=== PATIENT | female | born 1960 | race African-American/Black ===

== ENCOUNTER → 2018-02-16 | Outpatient (CLI) | payer MEDICARE, MEDICAID | END | disposition home or self-care (01) | LOC: MRI 12:14 | PROVIDERS: ATTEND Neurological Surgery | DX: M47.894 Other spondylosis, thoracic region (principal); M48.04 Spinal stenosis, thoracic region | CPT/HCPCS: 72146 ==

== ENCOUNTER 2018-07-30 10:30 | Inpatient (IN) | payer MEDICARE, MEDICAID ==
[~2018-07-30] VITALS: Ht 152.4 cm; Wt 88.0 kg
[2018-07-30] MEDS ORDERED: MORPHINE SULFATE 4 MG/ML CPJ (NOT FOR IM USE) IV STA (10:52)
[2018-07-30] MEDS ORDERED: SODIUM CHLORIDE 0.9% 1,000 ML IV ONE (10:52)
[2018-07-30] MEDS ORDERED: ONDANSETRON HCL 4MG/2ML INJ IV STA (10:52)
[2018-07-30] MEDS ORDERED: FAMOTIDINE 20MG/2ML VIAL IV ONE (11:00)
[2018-07-30 11:25] LABS: CLARITY URINE CLOUDY (CLEAR); COLOR URINE YELLOW (YELLOW); KETONES URINE 1+ (NEGATIVE); LEUKOCYTE ESTERASE URINE NEGATIVE (NEGATIVE); NITRITE URINE NEGATIVE (NEGATIVE); OCCULT BLOOD URINE NEGATIVE (NEGATIVE); PH URINE 7.5 (4.5-8.0); PROTEIN URINE 1+ (NEGATIVE); SPECIFIC GRAVITY URINE 1.012 (1.005-1.030); UROBILINOGEN URINE 0.2 E.U./dL (0.2-1.0)
[2018-07-30 11:45] LABS: CHLORIDE 109 mEq/L (98-107); PARTIAL THROMBOPLASTIN TIME 24.9 sec (23.4-31.0); PROTHROMBIN TIME 10.1 sec (9.6-11.0)
[2018-07-30 11:45] LABS: *AMPHETAMINES SCREEN URINE NEGATIVE (NEGATIVE); *BARBITURATES SCREEN URINE NEGATIVE (NEGATIVE); *BENZODIAZEPINES SCREEN URINE NEGATIVE (NEGATIVE); *COCAINE SCREEN URINE NEGATIVE (NEGATIVE); CANNABINOID URINE SCREEN PRESUMTIVE POSITIVE (NEGATIVE); METHADONE URINE SCREEN NEGATIVE (NEGATIVE); OPIATES URINE SCREEN PRESUMTIVE POSITIVE (NEGATIVE)
[2018-07-30 11:47] LABS: PHENCYCLIDINE URINE SCREEN NEGATIVE (NEGATIVE)
[2018-07-30 11:49] LABS: ETHANOL BLOOD < 10 mg/dL
[2018-07-30] MEDS ORDERED: MORPHINE SULFATE 4 MG/ML CPJ (NOT FOR IM USE) IV ONE (12:00)
[2018-07-30] MEDS ORDERED: METOCLOPRAMIDE HCL 10MG/2ML VIAL IV ONE (12:00)
[2018-07-30] MEDS ORDERED: HYDRALAZINE 20MG/ML VIAL IV ONE ×2 (12:15→13:30)
[2018-07-30 13:11] LABS: BASOPHILS % 0.6 % (0.0-2.0); EOSINOPHILS % 0.1 % (0.0-5.0); HEMOGLOBIN. 12.7 g/dL (12.0-16.0); MEAN CORPUSCULAR HEMOGLOBIN 23.3 pg (28.0-32.0); MEAN CORPUSCULAR VOLUME 73.2 fL (81.0-99.0); MEAN PLATELET VOLUME 8.9 fl (7.4-10.4); MONOCYTES % 6.4 % (2.0-8.0); NEUTROPHILS % 79.9 % (40.0-76.0); PLATELET 241 x1000/uL (130-400); RED BLOOD CELL COUNT 5.46 mill/uL (4.2-5.4); RED CELL DISTRIBUTION WIDTH 17.1 % (11.6-14.6)
[2018-07-30] MEDS ORDERED: MAGNESIUM/ALUMINUM HYDROXIDE/SIMETHICONE 30ML UDC PO PRN (14:00)
[2018-07-30] MEDS ORDERED: GUAIFENESIN 200MG/10ML SUGAR FREE UDC PO PRN (14:00)
[2018-07-30] MEDS ORDERED: ACETAMINOPHEN 325MG TABLET PO PRN (14:00)
[2018-07-30] MEDS ORDERED: HYDROCODONE/ACETAMINOPHEN 5/325MG TABLET PO PRN (14:00)
[2018-07-30] MEDS ORDERED: ONDANSETRON HCL 4MG/2ML INJ IV PRN (14:00)
[2018-07-30] MEDS ORDERED: DOCUSATE SODIUM 100MG CAPSULE PO PRN (14:00)
[2018-07-30] MEDS ORDERED: ACETAMINOPHEN 650MG/20.3ML UDC GT PRN (14:00)
[2018-07-30] MEDS ORDERED: NA PHOS,M-B/NA PHOS,DI-BA ENEMA 118ML PR PRN (14:00)
[2018-07-30] MEDS ORDERED: ACETAMINOPHEN 650MG SUPP PR PRN (14:00)
[2018-07-30] MEDS ORDERED: DIPHENHYDRAMINE 50MG/ML VIAL IV PRN (14:00)
[2018-07-30] MEDS ORDERED: IPRATROPIUM/ALBUTEROL 0.5-3(2.5)MG/3ML NEB INH PRN (14:00)
[2018-07-30] MEDS ORDERED: CLONIDINE 0.1MG TABLET PO PRN (14:00)
[2018-07-30 14:02] VITALS: BP 165/78
[2018-07-30] MEDS: DEXT 5%/0.45% NACL 1000ML 1,000 ML IV SCH (15:26)
[2018-07-30] MEDS: AMLODIPINE 10MG TABLET PO SCH (15:38)
[2018-07-30] MEDS: SODIUM CHLORIDE 0.9% INJ 3ML FLUSH IVF SCH ×2 (15:38→21:23)
[2018-07-30 16:00] VITALS: BP 196/64
[2018-07-30] MEDS: ENOXAPARIN 40MG/0.4ML SYR SUBCUT SCH (16:19)
[2018-07-30] MEDS: PREDNISONE 5MG TABLET PO SCH (18:46)
[2018-07-30] MEDS: METOCLOPRAMIDE HCL 10MG/2ML VIAL IV SCH (18:46)
[2018-07-30] MEDS: MORPHINE SULFATE 2 MG/ML CPJ (NOT FOR IM USE) IV PRN (19:08)
[2018-07-30] MEDS ORDERED: PNEUMOCOCCAL 23-VAL P-SAC VAC 0.5 ML IM ONE (19:45)
[2018-07-30 19:51] VITALS: BP 178/68
[2018-07-30] MEDS: FAMOTIDINE 20MG/2ML VIAL IV SCH (21:19)
[2018-07-30] MEDS: HYDRALAZINE 20MG/ML VIAL IV PRN (21:22)
[2018-07-30 22:20] LABS: CREATINE KINASE 221 IU/L (26-192)
[2018-07-30 22:21] LABS: CREATINE KINASE MB FRACTION 1.9 ng/mL (0.5-3.6)
[2018-07-31] MEDS: DEXT 5%/0.45% NACL 1000ML 1,000 ML IV SCH (02:58)
[2018-07-31] MEDS: MORPHINE SULFATE 2 MG/ML CPJ (NOT FOR IM USE) IV PRN ×5 (02:59→23:25)
[2018-07-31] MEDS: METOCLOPRAMIDE HCL 10MG/2ML VIAL IV SCH ×5 (05:52→23:25)
[2018-07-31 06:00] VITALS: BP 162/67
[2018-07-31] MEDS: SODIUM CHLORIDE 0.9% INJ 3ML FLUSH IVF SCH ×3 (06:12→22:28)
[2018-07-31] MEDS: HYDRALAZINE 20MG/ML VIAL IV PRN (06:12)
[2018-07-31 06:53] LABS: BASOPHILS % 0.3 % (0.0-2.0); EOSINOPHILS % 0.1 % (0.0-5.0); HEMATOCRIT. 36.6 % (36.0-48.0); HEMOGLOBIN. 11.8 g/dL (12.0-16.0); LYMPHOCYTES % 15.9 % (20.0-50.0); MEAN CORPUSCULAR HEMOGLOBIN 23.5 pg (28.0-32.0); MEAN PLATELET VOLUME 9.2 fl (7.4-10.4); MONOCYTES % 8.3 % (2.0-8.0); NEUTROPHILS % 75.4 % (40.0-76.0); PLATELET 237 x1000/uL (130-400); RED BLOOD CELL COUNT 5.01 mill/uL (4.2-5.4); RED CELL DISTRIBUTION WIDTH 17.2 % (11.6-14.6)
[2018-07-31 07:03] LABS: CHLORIDE 107 mEq/L (98-107)
[2018-07-31 07:13] LABS: LDL CHOLESTEROL 86 mg/dL (5-100)
[2018-07-31 07:14] LABS: CREATINE KINASE 193 IU/L (26-192); HDL CHOLESTEROL 51 mg/dL (40-59)
[2018-07-31 07:17] LABS: CREATINE KINASE MB FRACTION 1.5 ng/mL (0.5-3.6)
[2018-07-31 08:00] VITALS: BP 131/65
[2018-07-31] MEDS: PREDNISONE 5MG TABLET PO SCH (09:00)
[2018-07-31] MEDS: FAMOTIDINE 20MG/2ML VIAL IV SCH ×2 (09:50→20:34)
[2018-07-31 12:00] VITALS: BP 149/72
[2018-07-31] MEDS ORDERED: MIDAZOLAM HCL 5 MG/5 ML VIAL ONE (12:32)
[2018-07-31] MEDS ORDERED: FENTANYL CITRATE/PF 50MCG/ML 2ML VIAL ONE (12:33)
[2018-07-31] MEDS: AMLODIPINE 10MG TABLET PO SCH (13:58)
[2018-07-31] MEDS: ENOXAPARIN 40MG/0.4ML SYR SUBCUT SCH (13:59)
[2018-07-31 16:00] VITALS: BP 147/71
[2018-07-31 19:53] VITALS: BP 142/60
[2018-07-31] MEDS ORDERED: POTASSIUM CHLORIDE 20MEQ TABLET SR PO SCH (20:15)
[2018-08-01] VITALS: BP 138/75
[2018-08-01] MEDS: MORPHINE SULFATE 2 MG/ML CPJ (NOT FOR IM USE) IV PRN (04:12)
[2018-08-01] MEDS: DEXT 5%/0.45% NACL 1000ML 1,000 ML IV SCH (05:34)
[2018-08-01] MEDS: METOCLOPRAMIDE HCL 10MG/2ML VIAL IV SCH (05:34)
[2018-08-01] MEDS: SODIUM CHLORIDE 0.9% INJ 3ML FLUSH IVF SCH (05:35)
[2018-08-01 08:00] VITALS: BP 140/65
[2018-08-01] MEDS ORDERED: FAMO40TA70 MT (08:18)
[2018-08-01] MEDS ORDERED: POTASSIUM CHLORIDE 20MEQ TABLET SR PO PRN (08:30)
[2018-08-01] MEDS: AMLODIPINE 10MG TABLET PO SCH (08:45)
[2018-08-01] MEDS: FAMOTIDINE 20MG/2ML VIAL IV SCH (08:45)
[2018-08-01] MEDS: PREDNISONE 5MG TABLET PO SCH (08:45)
[2018-08-01 08:51] VITALS: BP 140/65
[2018-08-01] MEDS: ENOXAPARIN 40MG/0.4ML SYR SUBCUT SCH (09:00)
== END 2018-08-01 09:40 | disposition home or self-care (01) | DRG 392 ==
LOC: ER 10:30 → 6WST 12:58 → EDBEDREQ 13:00 → ENRESERV 13:14
PROVIDERS: ADMIT Family Medicine; ATTEND Family Medicine
PROC: 0DB68ZX Excision of Stomach, Via Natural or Artificial Opening Endoscopic, Diagnostic (ICD-10-PCS; principal; 2018-07-31)
DX: K29.70 Gastritis, unspecified, without bleeding (principal); J98.11 Atelectasis; E86.0 Dehydration; K44.9 Diaphragmatic hernia without obstruction or gangrene; E11.9 Type 2 diabetes mellitus without complications; I50.9 Heart failure, unspecified; I11.0 Hypertensive heart disease with heart failure; E66.9 Obesity, unspecified; G89.29 Other chronic pain; I25.10 Atherosclerotic heart disease of native coronary artery without angina pectoris; J44.9 Chronic obstructive pulmonary disease, unspecified; M32.9 Systemic lupus erythematosus, unspecified; M51.9 Unspecified thoracic, thoracolumbar and lumbosacral intervertebral disc disorder; Z87.01 Personal history of pneumonia (recurrent); Z68.37 Body mass index [BMI] 37.0-37.9, adult; Z87.442 Personal history of urinary calculi; Z90.710 Acquired absence of both cervix and uterus; Z95.5 Presence of coronary angioplasty implant and graft
CPT/HCPCS: 36415; 71045; 74176; 80061; 80305; 80320; 82550; 82553; 83605; 83880; 84484; 88305; 88313; 93005; 96374; 96375; 96376; 99285; J0360; J1650; J2250; J2270; J2405; J2765; J3010; J3490; J7030; J7512; G0480

== ENCOUNTER 2019-05-17 05:12 | Inpatient (IN) | payer MEDICARE, MEDICAID ==
[~2019-05-17] VITALS: Ht 152.4 cm; Wt 97.7 kg
[2019-05-17] VITALS (61 sets, daily range): BP systolic 89–231; BP diastolic 34–100
[~2019-05-17 05:12] MED LIST: AMLO5TAB88 PO; ASPI-1497 PO; CLON0.1T PO; CLON1PAT10 TD; CLOP75TA4 PO; DOCU-286 PO; FAMO40TA70 MT; FURO-152 PO; GABA-533 PO; HYDR-3280 PO; HYDR-4135 PO; HYDR200T35 PO; HYDR25TA PO; KRIL1CAP23 PO; LISI40TA4 PO; OMEG-31 PO; OMEP40CA12 PO; OXYC30TA86 PO; POTA20TA12 PO; TURM500C6 PO
[2019-05-17] MEDS ORDERED: LACTATED RINGERS 1,000 ML IV SCH (06:15)
[2019-05-17 06:24] LABS: CHLORIDE 113 mEq/L (98-107)
[2019-05-17] MEDS ORDERED: LIDOCAINE HCL/EPINEPHRINE 1%-EPI 1:100,000 20 ML VIAL ONE (06:45)
[2019-05-17] MEDS ORDERED: THROMBIN (BOVINE) 5000 UNITS/VIAL TOP ONE ×3 (06:45→09:07)
[2019-05-17] MEDS ORDERED: BACITRACIN 50,000 UNITS/VIAL ONE (06:46)
[2019-05-17] MEDS ORDERED: FENTANYL CITRATE/PF 50MCG/ML 2ML VIAL ONE ×2 (06:53→10:41)
[2019-05-17] MEDS ORDERED: ROCURONIUM BROMIDE 10MG/ML VIAL 5ML IV ONE ×2 (06:54→09:09)
[2019-05-17] MEDS ORDERED: MIDAZOLAM HCL 2 MG/2 ML VIAL ONE ×2 (06:54→10:41)
[2019-05-17] MEDS ORDERED: GLYCOPYRROLATE 0.2 MG/ML 2ML VIAL ONE ×2 (06:54→10:30)
[2019-05-17] MEDS ORDERED: NEOSTIGMINE METHYLSULFATE 1MG/ML 10 ML VIAL ONE (06:54)
[2019-05-17] MEDS ORDERED: PROPOFOL 200MG/20ML VIAL IV ONE ×2 (06:54→08:13)
[2019-05-17] MEDS ORDERED: ONDANSETRON HCL 4MG/2ML INJ IV PRN ×2 (07:15)
[2019-05-17] MEDS ORDERED: OXYCODONE HCL/ACETAMINOPHEN 5/325MG TABLET PO PRN (07:15)
[2019-05-17] MEDS ORDERED: HYDROMORPHONE HCL/PF 2MG/ML (OR) ONE ×2 (07:53→08:17)
[2019-05-17] MEDS ORDERED: DEXAMETHASONE 4MG/ML 1ML VIAL ONE (07:53)
[2019-05-17] MEDS ORDERED: SUCCINYLCHOLINE CHLORIDE 200MG/10ML IV ONE (08:01)
[2019-05-17] MEDS ORDERED: LABETALOL HCL 5MG/ML VIAL 20ML IV ONE (08:01)
[2019-05-17] MEDS ORDERED: PROPOFOL 10MG/ML 100ML 100 ML IV ONE (08:02)
[2019-05-17] MEDS ORDERED: SODIUM CHLORIDE 0.9% 10ML VIAL ONE ×2 (09:55→10:49)
[2019-05-17] MEDS ORDERED: METOCLOPRAMIDE HCL 10MG/2ML VIAL ONE (09:56)
[2019-05-17] MEDS ORDERED: CEFAZOLIN SODIUM 1000MG/VIAL ONE (09:56)
[2019-05-17] MEDS ORDERED: HYDRALAZINE 20MG/ML VIAL ONE (09:57)
[2019-05-17] MEDS ORDERED: LIDOCAINE HCL/PF 1% 10 MG/ML 5ML VIAL ONE (09:57)
[2019-05-17] MEDS ORDERED: EPHEDRINE SULFATE 50MG/ML VIAL ONE (10:49)
[2019-05-17] MEDS ORDERED: PHENYLEPHRINE HCL 10 MG/ML 1ML (IV VIAL) IV ONE (10:54)
[2019-05-17] MEDS: NICARDIPINE 100 MG in SODIUM CHLORIDE 0.9% 60 ML IV PRN ×2 (11:30→20:50)
[2019-05-17] MEDS ORDERED: IPRATROPIUM/ALBUTEROL 0.5-3(2.5)MG/3ML NEB HHN PRN (11:30)
[2019-05-17] MEDS ORDERED: ONDANSETRON INJ IV PRN (12:15)
[2019-05-17] MEDS ORDERED: NALOXONE INJ IV PRN (12:15)
[2019-05-17] MEDS ORDERED: DIPHENHYDRAMINE INJ IV PRN (12:15)
[2019-05-17 12:22] LABS: BG BASE EXCESS -6.3 mmol/L (-2.0-2.0); BG CARBOXYHEMOGLOBIN 0.2 % (0.5-1.5); BG DEOXYHEMOGLOBIN 0.8 % (0.0-5.0); BG FRACTION INSPIRED OXYGEN 100; BG HCO3 ACT 17.9 mmol/L (22.0-26.0); BG METHEMOGLOBIN 0.1 % (0.0-1.5); BG OXYGEN SATURATION 99.2 % (92.0-98.5); BG OXYHEMOGLOBIN 98.9 % (94.0-97.0); BG PCO2 31.6 mmHg (35.0-45.0); BG PH 7.372 (7.350-7.450); BG PO2 342.5 mmHg (75.0-100.0); BG SAMPLE SITE A-LINE; BG TIDAL VOLUME(mL) 500 mL; BG TOTAL HEMOGLOBIN 11.3 g/dL (12.0-18.0); BG VENT MODE VENT - A/C; BG VENT RATE 14 set
[2019-05-17] MEDS: IPRATROPIUM/ALBUTEROL 0.5-3(2.5)MG/3ML NEB HHN SCH ×2 (13:03→20:28)
[2019-05-17] MEDS: MORPHINE SULFATE 4 MG/ML CPJ (NOT FOR IM USE) IV PRN ×4 (13:39→22:21)
[2019-05-17] MEDS: CEFAZOLIN 1000MG PREMIX 50 ML IV SCH ×2 (13:43→22:14)
[2019-05-17] MEDS ORDERED: CEFAZOLIN SODIUM 1000MG/VIAL IV SCH (14:00)
[2019-05-17] MEDS: HYDROMORPHONE PCA 10MG/50ML IV PRN (14:28)
[2019-05-17] MEDS: DEXT 5%/LACTATED RINGERS 1,000 ML IV SCH ×2 (15:16→22:15)
[2019-05-17 16:06] LABS: HEMOGLOBIN. 10.8 g/dL (12.0-16.0); MEAN CORPUSCULAR VOLUME 76.3 fL (81.0-99.0); MEAN PLATELET VOLUME 9.9 fl (7.4-10.4); PLATELET 63 x1000/uL (130-400); RED BLOOD CELL COUNT 4.71 mill/uL (4.2-5.4); RED CELL DISTRIBUTION WIDTH 17.9 % (11.6-14.6)
[2019-05-17 16:43] LABS: PLATELET ESTIMATE DECREASED
[2019-05-17] MEDS: PROPOFOL 10MG/ML 100ML 100 ML IV PRN (17:13)
[2019-05-18] VITALS (94 sets, daily range): BP systolic 41–171; BP diastolic 18–156
[2019-05-18] MEDS: MORPHINE SULFATE 4 MG/ML CPJ (NOT FOR IM USE) IV PRN ×7 (00:57→23:08)
[2019-05-18] MEDS: PROPOFOL 10MG/ML 100ML 100 ML IV PRN (00:57)
[2019-05-18] MEDS: IPRATROPIUM/ALBUTEROL 0.5-3(2.5)MG/3ML NEB HHN SCH ×4 (02:05→20:39)
[2019-05-18] MEDS: NICARDIPINE 100 MG in SODIUM CHLORIDE 0.9% 60 ML IV PRN (06:21)
[2019-05-18] MEDS: DEXT 5%/LACTATED RINGERS 1,000 ML IV SCH ×2 (06:22→15:20)
[2019-05-18] MEDS: CEFAZOLIN 1000MG PREMIX 50 ML IV SCH ×3 (06:24→21:08)
[2019-05-18 08:02] LABS: BASOPHILS % 0.2 % (0.0-2.0); HEMATOCRIT. 29.2 % (36.0-48.0); HEMOGLOBIN. 9.5 g/dL (12.0-16.0); LYMPHOCYTES % 8.6 % (20.0-50.0); MEAN CORPUSCULAR HEMOGLOBIN 22.7 pg (28.0-32.0); MEAN CORPUSCULAR VOLUME 70.2 fL (81.0-99.0); MEAN PLATELET VOLUME 9.5 fl (7.4-10.4); MONOCYTES % 4.2 % (2.0-8.0); PLATELET 232 x1000/uL (130-400); RED BLOOD CELL COUNT 4.17 mill/uL (4.2-5.4)
[2019-05-18 08:10] LABS: CHLORIDE 115 mEq/L (98-107)
[2019-05-18 08:11] LABS: BG BASE EXCESS -6.4 mmol/L (-2.0-2.0); BG CARBOXYHEMOGLOBIN 0.3 % (0.5-1.5); BG DEOXYHEMOGLOBIN 1.8 % (0.0-5.0); BG FRACTION INSPIRED OXYGEN 40; BG HCO3 ACT 16.7 mmol/L (22.0-26.0); BG METHEMOGLOBIN 0.1 % (0.0-1.5); BG OXYGEN SATURATION 98.2 % (92.0-98.5); BG OXYHEMOGLOBIN 97.8 % (94.0-97.0); BG PCO2 24.8 mmHg (35.0-45.0); BG PH 7.445 (7.350-7.450); BG PO2 137.8 mmHg (75.0-100.0); BG SAMPLE SITE RIGHT RADIAL; BG TIDAL VOLUME(mL) 500 mL; BG TOTAL HEMOGLOBIN 8.4 g/dL (12.0-18.0); BG VENT MODE VENT - A/C; BG VENT RATE 14 set
[2019-05-18 10:43] LABS: BG BASE EXCESS -4.1 mmol/L (-2.0-2.0); BG CARBOXYHEMOGLOBIN 0.3 % (0.5-1.5); BG DEOXYHEMOGLOBIN 1.9 % (0.0-5.0); BG FRACTION INSPIRED OXYGEN 40; BG HCO3 ACT 20.2 mmol/L (22.0-26.0); BG METHEMOGLOBIN 0.2 % (0.0-1.5); BG OXYGEN SATURATION 98.1 % (92.0-98.5); BG OXYHEMOGLOBIN 97.6 % (94.0-97.0); BG PCO2 33.2 mmHg (35.0-45.0); BG PH 7.401 (7.350-7.450); BG PO2 136.1 mmHg (75.0-100.0); BG PRESSURE SUPPORT 8; BG SAMPLE SITE RIGHT RADIAL; BG TOTAL HEMOGLOBIN 8.8 g/dL (12.0-18.0); BG VENT MODE VENT - CPAP
[2019-05-18 19:48] LABS: CLARITY URINE CLEAR (CLEAR); COLOR URINE YELLOW (YELLOW); KETONES URINE NEGATIVE (NEGATIVE); LEUKOCYTE ESTERASE URINE NEGATIVE (NEGATIVE); NITRITE URINE NEGATIVE (NEGATIVE); OCCULT BLOOD URINE TRACE (NEGATIVE); PROTEIN URINE NEGATIVE (NEGATIVE); SPECIFIC GRAVITY URINE 1.014 (1.005-1.030); UROBILINOGEN URINE 0.2 E.U./dL (0.2-1.0)
[2019-05-19] VITALS (42 sets, daily range): BP systolic 105–165; BP diastolic 40–101
[2019-05-19] MEDS: MORPHINE SULFATE 4 MG/ML CPJ (NOT FOR IM USE) IV PRN ×7 (00:53→19:24)
[2019-05-19] MEDS: HYDROMORPHONE PCA 10MG/50ML IV PRN (01:01)
[2019-05-19] MEDS: DEXT 5%/LACTATED RINGERS 1,000 ML IV SCH ×3 (01:19→18:00)
[2019-05-19] MEDS: IPRATROPIUM/ALBUTEROL 0.5-3(2.5)MG/3ML NEB HHN SCH ×4 (01:34→22:02)
[2019-05-19 05:13] LABS: BASOPHILS % 0.2 % (0.0-2.0); HEMATOCRIT. 26.6 % (36.0-48.0); HEMOGLOBIN. 8.8 g/dL (12.0-16.0); LYMPHOCYTES % 13.5 % (20.0-50.0); MEAN CORPUSCULAR HEMOGLOBIN 23.3 pg (28.0-32.0); MEAN CORPUSCULAR VOLUME 70.7 fL (81.0-99.0); MONOCYTES % 6.7 % (2.0-8.0); NEUTROPHILS % 79.6 % (40.0-76.0); PLATELET 199 x1000/uL (130-400); RED BLOOD CELL COUNT 3.77 mill/uL (4.2-5.4); RED CELL DISTRIBUTION WIDTH 17.3 % (11.6-14.6)
[2019-05-19 05:29] LABS: CHLORIDE 114 mEq/L (98-107)
[2019-05-19] MEDS: CEFAZOLIN 1000MG PREMIX 50 ML IV SCH ×2 (05:53→13:18)
[2019-05-19] MEDS ORDERED: PANTOPRAZOLE SODIUM 40 MG/VIAL IV SCH (09:00)
[2019-05-19] MEDS ORDERED: NON FORMULARY PATIENT HOME MED XX SCH (09:15)
[2019-05-19] MEDS ORDERED: HYDROXYCHLOROQUINE SULFATE 200MG TABLET PO SCH (09:15)
[2019-05-19] MEDS ORDERED: FLUT1BLS3 INH (11:09)
[2019-05-19] MEDS: AMLODIPINE 5MG TABLET PO SCH (11:32)
[2019-05-19] MEDS: FISH OIL/OMEGA-3 FATTY ACIDS 1000MG CAPSULE PO SCH (11:32)
[2019-05-19] MEDS: OMEPRAZOLE 20MG CAPSULE EXTENDED RELEASE PO SCH (11:33)
[2019-05-19] MEDS: HYDROXYCHLOROQUINE SULFATE 200MG TABLET PO SCH ×2 (11:33→16:56)
[2019-05-19] MEDS: TRELEGY ELLIPTA ORI SCH (12:00)
[2019-05-19] MEDS: [UNRECOGNIZED DRUG - OTHER] XX SCH (15:02)
[2019-05-19] MEDS ORDERED: CLONIDINE 0.1MG TABLET PO PRN (15:30)
[2019-05-19] MEDS: LISINOPRIL 40MG TABLET PO SCH (16:56)
[2019-05-19] MEDS: DOCUSATE SODIUM 100MG CAPSULE PO SCH (16:56)
[2019-05-19] MEDS ORDERED: CLONIDINE HCL 0.3MG/24HR PATCH TD SCH (17:00)
[2019-05-20] VITALS: BP 159/59
[2019-05-20] MEDS: IPRATROPIUM/ALBUTEROL 0.5-3(2.5)MG/3ML NEB HHN SCH ×2 (01:28→08:53)
[2019-05-20 04:00] VITALS: BP 157/47
[2019-05-20] MEDS: HYDROMORPHONE PCA 10MG/50ML IV PRN (06:03)
[2019-05-20] MEDS: DEXT 5%/LACTATED RINGERS 1,000 ML IV SCH ×2 (07:00→18:02)
[2019-05-20 07:34] LABS: CHLORIDE 109 mEq/L (98-107)
[2019-05-20 08:00] VITALS: BP 185/80
[2019-05-20] MEDS: OMEPRAZOLE 20MG CAPSULE EXTENDED RELEASE PO SCH (08:31)
[2019-05-20] MEDS: HYDROXYCHLOROQUINE SULFATE 200MG TABLET PO SCH ×2 (08:31→16:24)
[2019-05-20] MEDS: FISH OIL/OMEGA-3 FATTY ACIDS 1000MG CAPSULE PO SCH (08:31)
[2019-05-20] MEDS: DOCUSATE SODIUM 100MG CAPSULE PO SCH ×2 (08:31→16:24)
[2019-05-20] MEDS: LISINOPRIL 40MG TABLET PO SCH (08:31)
[2019-05-20] MEDS: [UNRECOGNIZED DRUG - OTHER] XX SCH (08:32)
[2019-05-20] MEDS: TRELEGY ELLIPTA ORI SCH (08:32)
[2019-05-20] MEDS: AMLODIPINE 5MG TABLET PO SCH (08:32)
[2019-05-20 10:32] LABS: BASOPHILS % 0.8 % (0.0-2.0); EOSINOPHILS % 0.7 % (0.0-5.0); HEMATOCRIT. 26.2 % (36.0-48.0); HEMOGLOBIN. 8.3 g/dL (12.0-16.0); LYMPHOCYTES % 33.1 % (20.0-50.0); MEAN CORPUSCULAR HEMOGLOBIN 22.7 pg (28.0-32.0); MEAN CORPUSCULAR VOLUME 71.3 fL (81.0-99.0); MEAN PLATELET VOLUME 8.9 fl (7.4-10.4); MONOCYTES % 8.6 % (2.0-8.0); NEUTROPHILS % 56.8 % (40.0-76.0); PLATELET 208 x1000/uL (130-400); RED BLOOD CELL COUNT 3.68 mill/uL (4.2-5.4); RED CELL DISTRIBUTION WIDTH 17.2 % (11.6-14.6)
[2019-05-20] MEDS ORDERED: HYDRALAZINE 20MG/ML VIAL IV PRN (11:30)
[2019-05-20 12:00] VITALS: BP 152/67
[2019-05-20] MEDS ORDERED: HYDRALAZINE 5 MG in SODIUM CHLORIDE 0.9% 50 ML IV PRN (12:00)
[2019-05-20] MEDS: HYDROCHLOROTHIAZIDE 25MG TABLET PO SCH (12:14)
[2019-05-20] MEDS: OXYCODONE HCL/ACETAMINOPHEN 5/325MG TABLET PO PRN ×3 (12:15→20:54)
[2019-05-20] MEDS: HYDROMORPHONE HCL/PF 2MG/ML CPJ IV PRN ×3 (14:40→23:07)
[2019-05-20 16:00] VITALS: BP 134/48
[2019-05-20 20:00] VITALS: BP 141/63
[2019-05-21] VITALS: BP 140/61
[2019-05-21] MEDS: HYDROMORPHONE HCL/PF 2MG/ML CPJ IV PRN ×5 (02:40→21:13)
[2019-05-21 04:00] VITALS: BP 128/52
[2019-05-21 06:12] LABS: BASOPHILS % 0.3 % (0.0-2.0); EOSINOPHILS % 1.4 % (0.0-5.0); HEMATOCRIT. 27.1 % (36.0-48.0); HEMOGLOBIN. 8.7 g/dL (12.0-16.0); LYMPHOCYTES % 40.6 % (20.0-50.0); MEAN CORPUSCULAR HEMOGLOBIN 22.8 pg (28.0-32.0); MEAN CORPUSCULAR VOLUME 70.7 fL (81.0-99.0); MEAN PLATELET VOLUME 8.9 fl (7.4-10.4); MONOCYTES % 7.8 % (2.0-8.0); NEUTROPHILS % 49.9 % (40.0-76.0); PLATELET 224 x1000/uL (130-400); RED BLOOD CELL COUNT 3.83 mill/uL (4.2-5.4); RED CELL DISTRIBUTION WIDTH 16.9 % (11.6-14.6)
[2019-05-21] MEDS: DEXT 5%/LACTATED RINGERS 1,000 ML IV SCH ×2 (07:01→20:41)
[2019-05-21 07:24] LABS: CHLORIDE 107 mEq/L (98-107)
[2019-05-21 08:00] VITALS: BP 154/74
[2019-05-21] MEDS: [UNRECOGNIZED DRUG - OTHER] XX SCH (08:23)
[2019-05-21] MEDS: TRELEGY ELLIPTA ORI SCH (08:23)
[2019-05-21] MEDS: DOCUSATE SODIUM 100MG CAPSULE PO SCH ×2 (08:24→16:01)
[2019-05-21] MEDS: FAMOTIDINE 20MG TABLET PO SCH ×2 (08:24→21:12)
[2019-05-21] MEDS: LISINOPRIL 40MG TABLET PO SCH (08:34)
[2019-05-21] MEDS: AMLODIPINE 5MG TABLET PO SCH (08:34)
[2019-05-21] MEDS: OXYCODONE HCL/ACETAMINOPHEN 5/325MG TABLET PO PRN ×3 (08:34→18:29)
[2019-05-21] MEDS: HYDROCHLOROTHIAZIDE 25MG TABLET PO SCH (08:34)
[2019-05-21] MEDS: HYDROXYCHLOROQUINE SULFATE 200MG TABLET PO SCH ×2 (08:35→16:01)
[2019-05-21 12:00] VITALS: BP 145/58
[2019-05-21] MEDS: POLYETHYLENE GLYCOL 3350 (17GM) 1 DOSE PACK PO SCH (13:12)
[2019-05-21 16:00] VITALS: BP 170/52
[2019-05-21 20:00] VITALS: BP 130/70
[2019-05-22] VITALS: BP 121/54
[2019-05-22] MEDS: OXYCODONE HCL/ACETAMINOPHEN 5/325MG TABLET PO PRN (00:06)
[2019-05-22] MEDS: HYDROMORPHONE HCL/PF 2MG/ML CPJ IV PRN ×6 (02:21→21:12)
[2019-05-22 04:00] VITALS: BP 129/62
[2019-05-22 08:00] VITALS: BP 132/41
[2019-05-22 08:09] LABS: BASOPHILS % 0.5 % (0.0-2.0); HEMATOCRIT. 27.1 % (36.0-48.0); LYMPHOCYTES % 39.5 % (20.0-50.0); MEAN CORPUSCULAR HEMOGLOBIN 23.6 pg (28.0-32.0); MEAN PLATELET VOLUME 9.1 fl (7.4-10.4); MONOCYTES % 7.8 % (2.0-8.0); NEUTROPHILS % 50.2 % (40.0-76.0); PLATELET 244 x1000/uL (130-400); RED BLOOD CELL COUNT 3.82 mill/uL (4.2-5.4)
[2019-05-22 08:26] LABS: CHLORIDE 105 mEq/L (98-107)
[2019-05-22] MEDS: TRELEGY ELLIPTA ORI SCH (09:00)
[2019-05-22] MEDS: [UNRECOGNIZED DRUG - OTHER] XX SCH (09:00)
[2019-05-22] MEDS: DOCUSATE SODIUM 100MG CAPSULE PO SCH ×2 (09:47→16:37)
[2019-05-22] MEDS: FAMOTIDINE 20MG TABLET PO SCH ×2 (09:47→21:12)
[2019-05-22] MEDS: POLYETHYLENE GLYCOL 3350 (17GM) 1 DOSE PACK PO SCH (09:47)
[2019-05-22] MEDS: HYDROCHLOROTHIAZIDE 25MG TABLET PO SCH (09:48)
[2019-05-22] MEDS: HYDROXYCHLOROQUINE SULFATE 200MG TABLET PO SCH ×2 (09:48→16:36)
[2019-05-22] MEDS: LISINOPRIL 40MG TABLET PO SCH (09:48)
[2019-05-22] MEDS: AMLODIPINE 5MG TABLET PO SCH (09:48)
[2019-05-22 12:00] VITALS: BP 124/44
[2019-05-22 16:00] VITALS: BP 125/47
[2019-05-22] MEDS ORDERED: MAGNESIUM CITRATE 300ML SOLUTION PO SCH (16:00)
[2019-05-22 20:00] VITALS: BP 124/55
[2019-05-23] VITALS (7 sets, daily range): BP systolic 87–145; BP diastolic 44–66
[2019-05-23] MEDS: HYDROMORPHONE HCL/PF 2MG/ML CPJ IV PRN ×6 (02:05→20:50)
[2019-05-23] MEDS: AMLODIPINE 5MG TABLET PO SCH (09:28)
[2019-05-23] MEDS: HYDROXYCHLOROQUINE SULFATE 200MG TABLET PO SCH ×2 (09:28→16:12)
[2019-05-23] MEDS: [UNRECOGNIZED DRUG - OTHER] XX SCH (09:28)
[2019-05-23] MEDS: HYDROCHLOROTHIAZIDE 25MG TABLET PO SCH (09:28)
[2019-05-23] MEDS: POLYETHYLENE GLYCOL 3350 (17GM) 1 DOSE PACK PO SCH (09:28)
[2019-05-23] MEDS: TRELEGY ELLIPTA ORI SCH (09:28)
[2019-05-23] MEDS: FAMOTIDINE 20MG TABLET PO SCH ×2 (09:28→21:24)
[2019-05-23] MEDS: DOCUSATE SODIUM 100MG CAPSULE PO SCH ×2 (09:28→16:12)
[2019-05-23] MEDS: LISINOPRIL 40MG TABLET PO SCH (09:29)
[2019-05-23] MEDS ORDERED: NA PHOS,M-B/NA PHOS,DI-BA ENEMA 118ML PR NR (10:30)
[2019-05-23] MEDS: DEXT 5%/LACTATED RINGERS 1,000 ML IV SCH (12:41)
== END 2019-05-23 21:20 | disposition home health service (06) | DRG 459 ==
LOC: OR 05:12 → MICUSO 05:13 → 6EST 05-19 19:51
PROVIDERS: ADMIT Neurological Surgery; ATTEND Neurological Surgery
PROC: 0SG1071 Fusion of 2 or more Lumbar Vertebral Joints with Autologous Tissue Substitute, Posterior Approach, Posterior Column, Open Approach (ICD-10-PCS; principal; 2019-05-17)
PROC: 01NB0ZZ Release Lumbar Nerve, Open Approach (ICD-10-PCS; 2019-05-17)
PROC: 00NY0ZZ Release Lumbar Spinal Cord, Open Approach (ICD-10-PCS; 2019-05-17)
PROC: 0QP004Z Removal of Internal Fixation Device from Lumbar Vertebra, Open Approach (ICD-10-PCS; 2019-05-17)
PROC: 0QP104Z Removal of Internal Fixation Device from Sacrum, Open Approach (ICD-10-PCS; 2019-05-17)
PROC: 5A1945Z Respiratory Ventilation, 24-96 Consecutive Hours (ICD-10-PCS; 2019-05-17)
PROC: 0BH17EZ Insertion of Endotracheal Airway into Trachea, Via Natural or Artificial Opening (ICD-10-PCS; 2019-05-17)
DX: M47.16 Other spondylosis with myelopathy, lumbar region (principal); J96.00 Acute respiratory failure, unspecified whether with hypoxia or hypercapnia; G82.50 Quadriplegia, unspecified; M51.06 Intervertebral disc disorders with myelopathy, lumbar region; M47.26 Other spondylosis with radiculopathy, lumbar region; M51.16 Intervertebral disc disorders with radiculopathy, lumbar region; M32.9 Systemic lupus erythematosus, unspecified; I10 Essential (primary) hypertension; B19.20 Unspecified viral hepatitis C without hepatic coma; D72.829 Elevated white blood cell count, unspecified; M48.061 Spinal stenosis, lumbar region without neurogenic claudication; I25.10 Atherosclerotic heart disease of native coronary artery without angina pectoris; K21.9 Gastro-esophageal reflux disease without esophagitis; R26.9 Unspecified abnormalities of gait and mobility; D64.9 Anemia, unspecified; R26.2 Difficulty in walking, not elsewhere classified; Z86.73 Personal history of transient ischemic attack (TIA), and cerebral infarction without residual deficits; Z79.82 Long term (current) use of aspirin; Z79.891 Long term (current) use of opiate analgesic; Z79.899 Other long term (current) drug therapy; Z79.84 Long term (current) use of oral hypoglycemic drugs; I25.2 Old myocardial infarction; Z95.5 Presence of coronary angioplasty implant and graft
CPT/HCPCS: 36415; 36600; 71045; 71250; 72100; 76000; 80048; 81003; 82375; 82805; 84145; 84478; 85025; 86850; 86900; 86920; 88300; 88304; 88311; 93970; 94002; 94003; 94640; 95864; 95925; 95926; 95928; 95929; 95940; 97110; 97116; 97163; 97167; 97530; 97535; C1713; C9113; J0330; J0360; J0690; J1100; J1170; J2250; J2270; J2370; J2405; J2704; J2710; J2765; J3010; J3490; J7050; J7121

== ENCOUNTER 2020-06-11 09:34 | Inpatient (IN) | payer MEDICARE, MEDICAID ==
[~2020-06-11] VITALS: Ht 167.6 cm; Wt 84.8 kg
[~2020-06-11 09:34] MED LIST changes: -ASPI-1497 PO; -CLOP75TA4 PO; -FAMO40TA70 MT; +FLUT1BLS3 INH; -HYDR-3280 PO; -HYDR-4135 PO; -KRIL1CAP23 PO; +LISI40TA13 PO; -LISI40TA4 PO; -OMEG-31 PO; -OXYC30TA86 PO
[2020-06-11] MEDS ORDERED: ONDANSETRON HCL 4MG/2ML INJ IV STA (11:23)
[2020-06-11] MEDS ORDERED: MORPHINE SULFATE 4 MG/ML CPJ (NOT FOR IM USE) IV STA (11:23)
[2020-06-11 11:48] LABS: BASOPHILS % 0.8 % (0.0-2.0); EOSINOPHILS % 0.2 % (0.0-5.0); HEMATOCRIT. 35.9 % (36.0-48.0); HEMOGLOBIN. 11.1 g/dL (12.0-16.0); LYMPHOCYTES % 8.5 % (20.0-50.0); MEAN CORPUSCULAR HEMOGLOBIN 21.7 pg (28.0-32.0); MEAN CORPUSCULAR VOLUME 69.8 fL (81.0-99.0); MEAN PLATELET VOLUME 8.3 fl (7.4-10.4); MONOCYTES % 3.3 % (2.0-8.0); NEUTROPHILS % 87.2 % (40.0-76.0); PLATELET 362 x1000/uL (130-400); RED BLOOD CELL COUNT 5.14 mill/uL (4.2-5.4); RED CELL DISTRIBUTION WIDTH 18.7 % (11.6-14.6)
[2020-06-11 11:55] LABS: CLARITY URINE CLEAR (CLEAR); COLOR URINE YELLOW (YELLOW); KETONES URINE NEGATIVE (NEGATIVE); LEUKOCYTE ESTERASE URINE TRACE (NEGATIVE); NITRITE URINE NEGATIVE (NEGATIVE); OCCULT BLOOD URINE NEGATIVE (NEGATIVE); PH URINE 8.5 (4.5-8.0); PROTEIN URINE NEGATIVE (NEGATIVE); UROBILINOGEN URINE 0.2 E.U./dL (0.2-1.0)
[2020-06-11 11:56] LABS: CHLORIDE 110 mEq/L (98-107); INR 0.9; PROTHROMBIN TIME 10.1 sec (9.6-11.0)
[2020-06-11] MEDS ORDERED: MORPHINE SULFATE 4 MG/ML CPJ (NOT FOR IM USE) IV ONE ×2 (12:30→16:00)
[2020-06-11 12:51] LABS: PLATELET ESTIMATE NORMAL
[2020-06-11] MEDS ORDERED: METOCLOPRAMIDE HCL 10MG/2ML VIAL IV ONE (13:30)
[2020-06-11] MEDS ORDERED: HYDRALAZINE 20MG/ML VIAL IV PRN (16:45)
[2020-06-11] MEDS ORDERED: ACETAMINOPHEN 325MG TABLET PO PRN (16:45)
[2020-06-11] MEDS ORDERED: ONDANSETRON HCL 4MG/2ML INJ IV PRN (16:45)
[2020-06-11] MEDS: SODIUM CHLORIDE 0.9% 1,000 ML IV SCH (17:13)
[2020-06-11] MEDS: PANTOPRAZOLE SODIUM 40 MG/VIAL IV SCH (17:40)
[2020-06-11] MEDS: HEPARIN 5000 UNITS/ML VIAL SUBCUT SCH (21:11)
[2020-06-11 21:35] VITALS: BP 100/64
[2020-06-11] MEDS: MORPHINE SULFATE 2 MG/ML CPJ (NOT FOR IM USE) IV PRN (22:31)
[2020-06-12] VITALS: BP 144/53
[2020-06-12] MEDS: MORPHINE SULFATE 2 MG/ML CPJ (NOT FOR IM USE) IV PRN ×4 (04:30→21:34)
[2020-06-12 05:06] LABS: CHLORIDE 107 mEq/L (98-107)
[2020-06-12 05:12] LABS: TOTAL IRON BINDING CAPACITY 327 ug/dL (250-450)
[2020-06-12 05:16] VITALS: BP 133/53
[2020-06-12 05:25] LABS: FERRITIN 57 ng/mL (10-291)
[2020-06-12 05:31] LABS: FOLIC ACID (FOLATE) SERUM >20 ng/mL ng/mL (>5.38)
[2020-06-12 05:43] LABS: VITAMIN B12 SERUM 1480 pg/mL (211-911)
[2020-06-12 06:25] LABS: BASOPHILS % 0.3 % (0.0-2.0); EOSINOPHILS % 1.1 % (0.0-5.0); LYMPHOCYTES % 33.2 % (20.0-50.0); MEAN CORPUSCULAR HEMOGLOBIN 21.5 pg (28.0-32.0); MEAN CORPUSCULAR VOLUME 68.3 fL (81.0-99.0); MONOCYTES % 4.8 % (2.0-8.0); NEUTROPHILS % 60.6 % (40.0-76.0); PLATELET 350 x1000/uL (130-400); RED BLOOD CELL COUNT 5.12 mill/uL (4.2-5.4); RED CELL DISTRIBUTION WIDTH 18.4 % (11.6-14.6)
[2020-06-12 08:00] VITALS: BP 161/65
[2020-06-12] MEDS: PANTOPRAZOLE SODIUM 40 MG/VIAL IV SCH (09:04)
[2020-06-12] MEDS: HEPARIN 5000 UNITS/ML VIAL SUBCUT SCH ×2 (09:10→21:28)
[2020-06-12] MEDS ORDERED: METOCLOPRAMIDE HCL 10MG TABLET PO PRN (11:45)
[2020-06-12 12:00] VITALS: BP 196/77
[2020-06-12] MEDS ORDERED: HYDRALAZINE 10 MG in SODIUM CHLORIDE 0.9% 49.5 ML IV PRN (12:00)
[2020-06-12] MEDS ORDERED: POTASSIUM CHLORIDE INJ 40 MEQ in DEXT 5% WATER 500 ML IV NR (14:30)
[2020-06-12] MEDS: CYCLOBENZAPRINE 10MG TABLET PO PRN (14:43)
[2020-06-12] MEDS: TRAMADOL 50MG TABLET PO PRN ×2 (15:14→21:33)
[2020-06-12] MEDS: GABAPENTIN 300MG CAPSULE PO SCH ×2 (15:15→21:59)
[2020-06-12] MEDS: AMLODIPINE 5MG TABLET PO SCH (15:16)
[2020-06-12] MEDS: CLONIDINE 0.1MG TABLET PO SCH (15:16)
[2020-06-12 16:00] VITALS: BP 159/66
[2020-06-12] MEDS: SODIUM CHLORIDE 0.9% 1,000 ML IV SCH (17:15)
[2020-06-12 20:00] VITALS: BP 159/78
[2020-06-13] VITALS: BP 113/46
[2020-06-13] MEDS: MORPHINE SULFATE 2 MG/ML CPJ (NOT FOR IM USE) IV PRN ×2 (03:44→08:50)
[2020-06-13] MEDS: TRAMADOL 50MG TABLET PO PRN (03:44)
[2020-06-13 04:00] VITALS: BP 137/63
[2020-06-13 07:15] LABS: BASOPHILS % 0.6 % (0.0-2.0); EOSINOPHILS % 1.8 % (0.0-5.0); HEMATOCRIT. 34.6 % (36.0-48.0); HEMOGLOBIN. 10.8 g/dL (12.0-16.0); LYMPHOCYTES % 51.2 % (20.0-50.0); MEAN CORPUSCULAR HEMOGLOBIN 21.4 pg (28.0-32.0); MEAN CORPUSCULAR VOLUME 68.8 fL (81.0-99.0); MEAN PLATELET VOLUME 8.8 fl (7.4-10.4); MONOCYTES % 5.7 % (2.0-8.0); NEUTROPHILS % 40.7 % (40.0-76.0); PLATELET 320 x1000/uL (130-400); RED BLOOD CELL COUNT 5.03 mill/uL (4.2-5.4)
[2020-06-13 07:20] LABS: CHLORIDE 110 mEq/L (98-107)
[2020-06-13] MEDS: GABAPENTIN 300MG CAPSULE PO SCH ×3 (07:35→21:43)
[2020-06-13 08:00] VITALS: BP 133/68
[2020-06-13] MEDS: AMLODIPINE 5MG TABLET PO SCH (08:47)
[2020-06-13] MEDS: HEPARIN 5000 UNITS/ML VIAL SUBCUT SCH ×2 (08:48→21:42)
[2020-06-13] MEDS: PANTOPRAZOLE SODIUM 40 MG/VIAL IV SCH (08:48)
[2020-06-13] MEDS: CLONIDINE 0.1MG TABLET PO SCH (09:09)
[2020-06-13] MEDS ORDERED: OXYC30TA86 PO ×2 (10:19→10:24)
[2020-06-13] MEDS ORDERED: OXYC-611 PO ×2 (10:19)
[2020-06-13 12:00] VITALS: BP 149/68
[2020-06-13] MEDS: LIDOCAINE 5% PATCH TOP SCH (12:08)
[2020-06-13] MEDS: HYDROCODONE/ACETAMINOPHEN 10/325MG TABLET PO PRN ×3 (12:44→21:46)
[2020-06-13] MEDS: SIMETHICONE 80MG TABLET CHEW PO SCH ×3 (15:15→21:44)
[2020-06-13] MEDS: METOCLOPRAMIDE HCL 10MG TABLET PO SCH ×2 (15:15→21:46)
[2020-06-13 16:00] VITALS: BP_SYST 151; BP_DIAS 76; BP_DIAS 78
[2020-06-13] MEDS ORDERED: BISACODYL 10MG SUPP PR PRN (16:45)
[2020-06-13] MEDS ORDERED: SENNOSIDES 8.6MG TABLET PO PRN (16:45)
[2020-06-13 20:00] VITALS: BP 163/76
[2020-06-13] MEDS: CYCLOBENZAPRINE 10MG TABLET PO PRN (21:43)
[2020-06-13] MEDS: METOPROLOL TARTRATE 25MG TABLET PO SCH (21:43)
[2020-06-14] VITALS: BP 171/73
[2020-06-14] MEDS: HYDROCODONE/ACETAMINOPHEN 10/325MG TABLET PO PRN ×3 (02:03→11:09)
[2020-06-14] MEDS: METOCLOPRAMIDE HCL 10MG TABLET PO SCH ×3 (02:03→13:22)
[2020-06-14] MEDS: GABAPENTIN 300MG CAPSULE PO SCH ×2 (06:21→13:21)
[2020-06-14 07:33] LABS: CHLORIDE 110 mEq/L (98-107)
[2020-06-14 07:57] LABS: BASOPHILS % 0.9 % (0.0-2.0); EOSINOPHILS % 2.8 % (0.0-5.0); HEMATOCRIT. 33.8 % (36.0-48.0); HEMOGLOBIN. 10.8 g/dL (12.0-16.0); LYMPHOCYTES % 56.8 % (20.0-50.0); MEAN CORPUSCULAR HEMOGLOBIN 22.3 pg (28.0-32.0); MEAN CORPUSCULAR VOLUME 69.6 fL (81.0-99.0); MEAN PLATELET VOLUME 9.1 fl (7.4-10.4); NEUTROPHILS % 33.5 % (40.0-76.0); PLATELET 240 x1000/uL (130-400); RED BLOOD CELL COUNT 4.86 mill/uL (4.2-5.4); RED CELL DISTRIBUTION WIDTH 18.2 % (11.6-14.6)
[2020-06-14 08:00] VITALS: BP 158/59
[2020-06-14] MEDS: SIMETHICONE 80MG TABLET CHEW PO SCH ×2 (08:58→13:21)
[2020-06-14] MEDS: AMLODIPINE 5MG TABLET PO SCH (08:59)
[2020-06-14] MEDS: CLONIDINE 0.1MG TABLET PO SCH (08:59)
[2020-06-14] MEDS ORDERED: DOCUSATE SODIUM SUGAR FREE 100MG/10ML UDC PO SCH (09:00)
[2020-06-14] MEDS ORDERED: CALCITONIN,SALMON, 3.7 ML NASAL SPRAY ONENSTRL SCH (09:00)
[2020-06-14] MEDS ORDERED: ASPIRIN 81MG TABLET PO SCH (09:00)
[2020-06-14] MEDS ORDERED: CALCIUM CARBONATE/VITAMIN D3 500MG TABLET PO SCH (09:00)
[2020-06-14] MEDS: PANTOPRAZOLE SODIUM 40 MG/VIAL IV SCH (09:00)
[2020-06-14] MEDS: HEPARIN 5000 UNITS/ML VIAL SUBCUT SCH (09:01)
[2020-06-14] MEDS: METOPROLOL TARTRATE 25MG TABLET PO SCH (09:02)
[2020-06-14] MEDS: LIDOCAINE 5% PATCH TOP SCH (09:03)
[2020-06-14 12:00] VITALS: BP 127/54
[2020-06-14] MEDS ORDERED: METO25TA6 PO (13:09)
[2020-06-14] MEDS ORDERED: LIDO700A30 TOP (13:09)
[2020-06-14] MEDS ORDERED: CYCL10TA7 PO (13:09)
[2020-06-14] MEDS ORDERED: AMLO5TAB88 PO (13:09)
[2020-06-14] MEDS ORDERED: GABA-532 PO (13:09)
[2020-06-14] MEDS ORDERED: SENN-257 PO (13:09)
[2020-06-14 15:49] VITALS: BP 146/63
[2020-06-14 16:00] VITALS: BP 146/63
[2020-06-14] MEDS ORDERED: AMLODIPINE 5MG TABLET PO SCH (17:00)
[2020-06-17 13:11] LABS: HGB A2 7.1 % (1.8-3.2); HGB F 3.6 % (0.0-2.0)
[2020-06-20 04:09] LABS: 25-HYDROXY VITAMIN D3 11 ng/mL (.)
== END 2020-06-14 16:21 | disposition home health service (06) | DRG 392 ==
LOC: ER 09:50 → 6EST 16:09 → EDBEDREQTM 16:14 → EDBEDREQSVC 16:14 → EDBEDREQ 16:14 → ENRESERV 20:20
PROVIDERS: ADMIT Internal Medicine; ATTEND Internal Medicine
DX: K29.70 Gastritis, unspecified, without bleeding (principal); M48.54XA Collapsed vertebra, not elsewhere classified, thoracic region, initial encounter for fracture; K21.9 Gastro-esophageal reflux disease without esophagitis; I25.2 Old myocardial infarction; I25.10 Atherosclerotic heart disease of native coronary artery without angina pectoris; I11.0 Hypertensive heart disease with heart failure; Z86.73 Personal history of transient ischemic attack (TIA), and cerebral infarction without residual deficits; I50.9 Heart failure, unspecified; J44.9 Chronic obstructive pulmonary disease, unspecified; E11.9 Type 2 diabetes mellitus without complications; D64.9 Anemia, unspecified; N20.0 Calculus of kidney; M51.16 Intervertebral disc disorders with radiculopathy, lumbar region; M32.9 Systemic lupus erythematosus, unspecified; M47.26 Other spondylosis with radiculopathy, lumbar region; E87.6 Hypokalemia; M81.0 Age-related osteoporosis without current pathological fracture; J94.9 Pleural condition, unspecified; E66.9 Obesity, unspecified; E78.5 Hyperlipidemia, unspecified; G89.4 Chronic pain syndrome; M48.04 Spinal stenosis, thoracic region; Z20.822 Contact with and (suspected) exposure to COVID-19; M48.061 Spinal stenosis, lumbar region without neurogenic claudication; M17.0 Bilateral primary osteoarthritis of knee; Z79.899 Other long term (current) drug therapy; Z82.49 Family history of ischemic heart disease and other diseases of the circulatory system; Z87.442 Personal history of urinary calculi; Z87.891 Personal history of nicotine dependence; Z90.710 Acquired absence of both cervix and uterus; Z95.5 Presence of coronary angioplasty implant and graft; Z98.1 Arthrodesis status; Z68.30 Body mass index [BMI] 30.0-30.9, adult; D72.829 Elevated white blood cell count, unspecified
CPT/HCPCS: 36415; 72146; 72148; 73562; 74176; 80053; 80061; 81003; 82306; 82607; 82728; 82746; 82962; 83021; 83540; 83550; 83615; 83735; 83880; 84443; 85025; 85660; 87426; 93005; 93306; 97116; 97162; 97166; 97530; 99285; C1893; C9113; J0360; J1644; J2270; J2405; J2765; J3480; J7060; J8597

== ENCOUNTER 2021-01-08 12:53 | Inpatient (IN) | payer MEDICARE, MEDICAID ==
[~2021-01-08] VITALS: Ht 167.6 cm; Wt 90.7 kg
[~2021-01-08 12:53] MED LIST changes: +CYCL10TA7 PO; +GABA-532 PO; -GABA-533 PO; +LIDO700A30 TOP; -LISI40TA13 PO; +METO25TA6 PO; -OMEP40CA12 PO; +OMEP40CA20 PO; +OXYC-611 PO; +OXYC30TA86 PO; +SENN-257 PO
[2021-01-08] MEDS ORDERED: ACETAMINOPHEN 325MG TABLET PO STA (14:26)
[2021-01-08 14:58] LABS: BASOPHILS % 0.2 % (0.0-2.0); EOSINOPHILS % 0.1 % (0.0-5.0); HEMATOCRIT. 39.5 % (36.0-48.0); HEMOGLOBIN. 12.3 g/dL (12.0-16.0); LYMPHOCYTES % 9.7 % (20.0-50.0); MEAN CORPUSCULAR VOLUME 70.4 fL (81.0-99.0); MONOCYTES % 5.4 % (2.0-8.0); NEUTROPHILS % 84.6 % (40.0-76.0); PLATELET 293 x1000/uL (130-400); RED BLOOD CELL COUNT 5.62 mill/uL (4.2-5.4); RED CELL DISTRIBUTION WIDTH 16.7 % (11.6-14.6)
[2021-01-08] MEDS ORDERED: KETOROLAC 30MG/ML VIAL IV STA (14:59)
[2021-01-08] MEDS ORDERED: ONDANSETRON HCL 4MG/2ML INJ IV STA ×2 (14:59→17:28)
[2021-01-08] MEDS ORDERED: SODIUM CHLORIDE 0.9% 1,000 ML IV ONE (15:00)
[2021-01-08 15:06] LABS: CHLORIDE 109 mEq/L (98-107)
[2021-01-08 15:10] LABS: PROTHROMBIN TIME 10.5 sec (9.6-11.0)
[2021-01-08 16:08] LABS: CLARITY URINE CLEAR (CLEAR); COLOR URINE YELLOW (YELLOW); KETONES URINE 1+ (NEGATIVE); LEUKOCYTE ESTERASE URINE NEGATIVE (NEGATIVE); NITRITE URINE NEGATIVE (NEGATIVE); OCCULT BLOOD URINE TRACE (NEGATIVE); PROTEIN URINE 1+ (NEGATIVE); SPECIFIC GRAVITY URINE 1.012 (1.005-1.030); UROBILINOGEN URINE 0.2 E.U./dL (0.2-1.0)
[2021-01-08] MEDS ORDERED: MORPHINE SULFATE 4 MG/ML CPJ (NOT FOR IM USE) IV STA (17:28)
[2021-01-08] MEDS ORDERED: MORPHINE SULFATE 2 MG/ML CPJ (NOT FOR IM USE) IV NR (17:45)
[2021-01-08] MEDS ORDERED: METOCLOPRAMIDE HCL 10MG/2ML VIAL IV ONE (18:45)
[2021-01-08] MEDS ORDERED: ACETAMINOPHEN 325MG TABLET PO PRN ×2 (21:45)
[2021-01-08] MEDS ORDERED: DOCUSATE SODIUM 100MG CAPSULE PO PRN (21:45)
[2021-01-08] MEDS ORDERED: NITROGLYCERIN 0.4MG TABLET SL SL PRN (21:45)
[2021-01-08] MEDS ORDERED: ZOLPIDEM TARTRATE 5MG TABLET PO PRN (21:45)
[2021-01-08] MEDS ORDERED: IPRATROPIUM/ALBUTEROL 0.5-3(2.5)MG/3ML NEB NEB PRN (21:45)
[2021-01-08] MEDS ORDERED: GUAIFENESIN 200MG/10ML SUGAR FREE UDC PO PRN (21:45)
[2021-01-08] MEDS ORDERED: ONDANSETRON HCL 4MG/2ML INJ IV PRN (21:45)
[2021-01-08] MEDS ORDERED: MAGNESIUM/ALUMINUM HYDROXIDE/SIMETHICONE 30ML UDC PO PRN (21:45)
[2021-01-08 22:08] LABS: *AMPHETAMINES SCREEN URINE NEGATIVE (NEGATIVE); *BARBITURATES SCREEN URINE NEGATIVE (NEGATIVE); *BENZODIAZEPINES SCREEN URINE NEGATIVE (NEGATIVE); *COCAINE SCREEN URINE NEGATIVE (NEGATIVE); CANNABINOID URINE SCREEN PRESUMTIVE POSITIVE (NEGATIVE); METHADONE URINE SCREEN NEGATIVE (NEGATIVE); OPIATES URINE SCREEN PRESUMTIVE POSITIVE (NEGATIVE); PHENCYCLIDINE URINE SCREEN NEGATIVE (NEGATIVE)
[2021-01-08] MEDS: PANTOPRAZOLE SODIUM 40 MG/VIAL IV SCH (22:34)
[2021-01-08] MEDS: AMLODIPINE 10MG TABLET PO SCH (22:34)
[2021-01-08] MEDS: ENOXAPARIN 30MG/0.3ML SYR SUBCUT SCH (22:35)
[2021-01-08 23:45] VITALS: BP 160/82
[2021-01-09] MEDS: KETOROLAC 15MG/ML VIAL IV PRN ×4 (00:04→23:27)
[2021-01-09 00:09] LABS: ETHANOL BLOOD < 10 mg/dL
[2021-01-09 00:10] LABS: TOTAL IRON BINDING CAPACITY 400 ug/dL (250-450)
[2021-01-09 00:11] LABS: LDL CHOLESTEROL 59 mg/dL (5-100)
[2021-01-09 00:12] LABS: CREATINE KINASE 473 IU/L (26-192); HDL CHOLESTEROL 69 mg/dL (40-59)
[2021-01-09 00:14] LABS: CREATINE KINASE MB FRACTION 2.1 ng/mL (0.5-3.6)
[2021-01-09 01:00] VITALS: BP 152/56
[2021-01-09 01:07] LABS: VITAMIN B12 SERUM 1711 pg/mL (211-911)
[2021-01-09 02:01] LABS: FOLIC ACID (FOLATE) SERUM > 20.00 ng/mL (>5.38)
[2021-01-09 04:00] VITALS: BP 150/74
[2021-01-09] MEDS: SUCRALFATE 1 G/10 ML UDC PO SCH ×4 (06:17→21:03)
[2021-01-09] MEDS: METOCLOPRAMIDE 10MG/10 ML UDC PO SCH ×3 (06:18→18:09)
[2021-01-09 08:00] VITALS: BP 146/62
[2021-01-09 08:21] LABS: BASOPHILS % 0.3 % (0.0-2.0); HEMATOCRIT. 38.7 % (36.0-48.0); LYMPHOCYTES % 26.3 % (20.0-50.0); MEAN CORPUSCULAR VOLUME 70.7 fL (81.0-99.0); MEAN PLATELET VOLUME 9.1 fl (7.4-10.4); MONOCYTES % 7.9 % (2.0-8.0); NEUTROPHILS % 64.5 % (40.0-76.0); PLATELET 292 x1000/uL (130-400); RED BLOOD CELL COUNT 5.47 mill/uL (4.2-5.4); RED CELL DISTRIBUTION WIDTH 16.5 % (11.6-14.6)
[2021-01-09 08:36] LABS: CHLORIDE 104 mEq/L (98-107)
[2021-01-09 08:44] LABS: PHOSPHORUS 2.9 mg/dL (2.5-4.9)
[2021-01-09 08:46] LABS: CREATINE KINASE 470 IU/L (26-192)
[2021-01-09 08:48] LABS: CREATINE KINASE MB FRACTION 2.6 ng/mL (0.5-3.6)
[2021-01-09] MEDS: PANTOPRAZOLE SODIUM 40 MG/VIAL IV SCH (08:50)
[2021-01-09] MEDS: AMLODIPINE 10MG TABLET PO SCH (08:52)
[2021-01-09] MEDS: TRAMADOL 50MG TABLET PO PRN ×2 (08:53→18:08)
[2021-01-09] MEDS: ENOXAPARIN 30MG/0.3ML SYR SUBCUT SCH ×2 (08:54→21:03)
[2021-01-09 12:00] VITALS: BP 110/45
[2021-01-09] MEDS ORDERED: INFLUENZA VACCINE 05/PF 0.5 ML SYRINGE IM ONE (12:00)
[2021-01-09] MEDS ORDERED: PNEUMOCOCCAL 23-VAL P-SAC VAC 0.5 ML IM ONE (12:00)
[2021-01-09] MEDS: BACLOFEN 10MG TABLET PO SCH ×2 (13:07→21:03)
[2021-01-09 16:00] VITALS: BP 137/67
[2021-01-09] MEDS: DOCUSATE SODIUM 100MG CAPSULE PO SCH (18:08)
[2021-01-09 20:00] VITALS: BP 141/59
[2021-01-10] VITALS: BP 122/69
[2021-01-10] MEDS: TRAMADOL 50MG TABLET PO PRN ×3 (03:58→17:06)
[2021-01-10 04:00] VITALS: BP 150/74
[2021-01-10] MEDS: METOCLOPRAMIDE 10MG/10 ML UDC PO SCH ×4 (06:25→17:00)
[2021-01-10] MEDS: SUCRALFATE 1 G/10 ML UDC PO SCH ×5 (06:25→19:55)
[2021-01-10] MEDS: BACLOFEN 10MG TABLET PO SCH ×3 (06:25→21:05)
[2021-01-10] MEDS: KETOROLAC 15MG/ML VIAL IV PRN ×3 (06:26→20:02)
[2021-01-10 08:00] VITALS: BP 166/86
[2021-01-10] MEDS: FAMOTIDINE 20MG/2ML VIAL IV SCH (08:39)
[2021-01-10] MEDS: DOCUSATE SODIUM 100MG CAPSULE PO SCH ×3 (08:39→21:12)
[2021-01-10] MEDS: AMLODIPINE 10MG TABLET PO SCH (08:46)
[2021-01-10] MEDS: ENOXAPARIN 30MG/0.3ML SYR SUBCUT SCH ×2 (08:47→19:54)
[2021-01-10] MEDS: CLONIDINE 0.1MG TABLET PO PRN ×2 (08:49→13:10)
[2021-01-10 12:00] VITALS: BP 167/77
[2021-01-10] MEDS ORDERED: POTASSIUM CHLORIDE 20MEQ/PACKET PO NR (15:30)
[2021-01-10 16:00] VITALS: BP 153/73
[2021-01-10] MEDS ORDERED: POTASSIUM CHLORIDE 20MEQ TABLET SR PO NR (17:00)
[2021-01-10] MEDS ORDERED: NALOXONE HCL 0.4MG/ML VIAL IV PRN (17:15)
[2021-01-10 20:00] VITALS: BP 102/69
[2021-01-10] MEDS ORDERED: NON FORMULARY PATIENT HOME MED XX SCH (20:00)
[2021-01-10] MEDS ORDERED: BENLYSTA SQ SCH (21:00)
[2021-01-10] MEDS: LACTULOSE 20G/30ML UDC PO SCH (21:09)
[2021-01-11] VITALS (7 sets, daily range): BP systolic 129–178; BP diastolic 46–87
[2021-01-11] MEDS: KETOROLAC 15MG/ML VIAL IV PRN ×2 (05:21→17:51)
[2021-01-11] MEDS: BACLOFEN 10MG TABLET PO SCH ×3 (05:21→21:31)
[2021-01-11] MEDS: CLONIDINE 0.1MG TABLET PO PRN ×2 (05:21→20:19)
[2021-01-11] MEDS: LACTULOSE 20G/30ML UDC PO SCH ×3 (05:21→21:33)
[2021-01-11] MEDS: SUCRALFATE 1 G/10 ML UDC PO SCH ×5 (06:19→21:32)
[2021-01-11] MEDS: METOCLOPRAMIDE 10MG/10 ML UDC PO SCH ×3 (06:19→17:12)
[2021-01-11 07:24] LABS: BASOPHILS % 0.4 % (0.0-2.0); EOSINOPHILS % 1.7 % (0.0-5.0); HEMATOCRIT. 35.3 % (36.0-48.0); HEMOGLOBIN. 11.3 g/dL (12.0-16.0); LYMPHOCYTES % 26.6 % (20.0-50.0); MEAN CORPUSCULAR HEMOGLOBIN 22.4 pg (28.0-32.0); MEAN CORPUSCULAR VOLUME 70.1 fL (81.0-99.0); MEAN PLATELET VOLUME 9.7 fl (7.4-10.4); MONOCYTES % 7.3 % (2.0-8.0); PLATELET 240 x1000/uL (130-400); RED BLOOD CELL COUNT 5.04 mill/uL (4.2-5.4); RED CELL DISTRIBUTION WIDTH 16.2 % (11.6-14.6)
[2021-01-11 07:38] LABS: CHLORIDE 108 mEq/L (98-107)
[2021-01-11 07:44] LABS: PHOSPHORUS 2.6 mg/dL (2.5-4.9)
[2021-01-11] MEDS: ENOXAPARIN 30MG/0.3ML SYR SUBCUT SCH ×2 (08:32→21:32)
[2021-01-11] MEDS: AMLODIPINE 10MG TABLET PO SCH (08:32)
[2021-01-11] MEDS: FAMOTIDINE 20MG/2ML VIAL IV SCH (08:32)
[2021-01-11] MEDS: DOCUSATE SODIUM 100MG CAPSULE PO SCH (17:00)
[2021-01-11] MEDS: TRAMADOL 50MG TABLET PO PRN (20:21)
[2021-01-12] VITALS: BP 128/54
[2021-01-12 04:00] VITALS: BP 163/79
[2021-01-12] MEDS: CLONIDINE 0.1MG TABLET PO PRN (04:07)
[2021-01-12] MEDS: LACTULOSE 20G/30ML UDC PO SCH (05:41)
[2021-01-12] MEDS: METOCLOPRAMIDE 10MG/10 ML UDC PO SCH (05:56)
[2021-01-12] MEDS: SUCRALFATE 1 G/10 ML UDC PO SCH (05:56)
[2021-01-12] MEDS: BACLOFEN 10MG TABLET PO SCH (05:56)
[2021-01-12 08:10] VITALS: BP 137/97
[2021-01-12] MEDS: KETOROLAC 15MG/ML VIAL IV PRN (08:18)
[2021-01-12] MEDS: AMLODIPINE 10MG TABLET PO SCH (08:31)
[2021-01-12] MEDS: DOCUSATE SODIUM 100MG CAPSULE PO SCH (08:31)
[2021-01-12] MEDS: FAMOTIDINE 20MG/2ML VIAL IV SCH (08:32)
[2021-01-12] MEDS: ENOXAPARIN 30MG/0.3ML SYR SUBCUT SCH (08:32)
[2021-01-12 11:09] VITALS: BP 137/97
[2021-01-12 12:00] VITALS: BP 124/84
== END 2021-01-12 12:00 | disposition home or self-care (01) | DRG 392 ==
LOC: ER 13:01 → EDBEDREQTM 20:24 → EDBEDREQ 20:24 → SUPCPDRO 21:31 → ENRESERV 22:32 → 6WST 23:37
PROVIDERS: ADMIT Internal Medicine; ATTEND Internal Medicine
DX: R11.2 Nausea with vomiting, unspecified (principal); I16.1 Hypertensive emergency; F12.188 Cannabis abuse with other cannabis-induced disorder; E11.9 Type 2 diabetes mellitus without complications; E66.9 Obesity, unspecified; I10 Essential (primary) hypertension; G89.4 Chronic pain syndrome; Z76.5 Malingerer [conscious simulation]; Z79.899 Other long term (current) drug therapy; Z95.5 Presence of coronary angioplasty implant and graft; Z98.1 Arthrodesis status; Z68.32 Body mass index [BMI] 32.0-32.9, adult; Z71.51 Drug abuse counseling and surveillance of drug abuser; Z71.3 Dietary counseling and surveillance; D72.829 Elevated white blood cell count, unspecified
CPT/HCPCS: 36415; 74176; 80048; 80053; 80061; 80305; 80320; 81003; 82550; 82553; 82607; 82746; 83036; 83540; 83550; 83735; 84100; 84484; 85025; 90686; 90732; 93005; 93306; 93970; 97161; 97166; 99285; C1893; C9113; J1650; J1885; J2270; J2405; J2765; J3490; J7030; J8597; G0480

== ENCOUNTER 2022-05-30 19:51 | Inpatient (IN) | payer MEDICARE, MEDICAID ==
[~2022-05-30] VITALS: Ht 157.5 cm; Wt 91.0 kg
[~2022-05-30 19:51] MED LIST changes: +CYCL10TA21 PO; -CYCL10TA7 PO; +POTA-194 PO; -POTA20TA12 PO
[2022-05-30] MEDS ORDERED: PANTOPRAZOLE SODIUM 40 MG/VIAL IV STA (20:22)
[2022-05-30] MEDS ORDERED: SODIUM CHLORIDE 0.9% 1,000 ML IV ONE (20:30)
[2022-05-30] MEDS ORDERED: DIPHENHYDRAMINE 50MG/ML VIAL IV ONE (20:30)
[2022-05-30] MEDS ORDERED: PROCHLORPERAZINE 10MG/2ML VIAL IV PRN (20:30)
[2022-05-30] MEDS ORDERED: LABETALOL 5MG/ML SYR 20 MG/4 ML SYRINGE IV ONE (20:30)
[2022-05-30] MEDS ORDERED: LABETALOL HCL VIAL 20 MG/4 ML VIAL IV ONE (21:30)
[2022-05-30] MEDS ORDERED: HYDRALAZINE 20MG/ML VIAL IV NR (21:30)
[2022-05-30] MEDS: LABETALOL 5MG/ML SYR 20 MG/4 ML SYRINGE IV NR ×2 (21:44→21:45)
[2022-05-30] MEDS ORDERED: LABETALOL HCL 100 MG in DEXT 5% WATER 80 ML IV SCH (22:45)
[2022-05-30 23:01] LABS: BASOPHILS % 0.4 % (0.0-2.0); EOSINOPHILS % 0.1 % (0.0-5.0); HEMATOCRIT. 42.9 % (36.0-48.0); HEMOGLOBIN. 13.7 g/dL (12.0-16.0); LYMPHOCYTES % 8.4 % (20.0-50.0); MEAN CORPUSCULAR HEMOGLOBIN 22.1 pg (28.0-32.0); MEAN CORPUSCULAR VOLUME 69.5 fL (81.0-99.0); MEAN PLATELET VOLUME 9.6 fl (7.4-10.4); MONOCYTES % 3.4 % (2.0-8.0); NEUTROPHILS % 87.7 % (40.0-76.0); PLATELET 274 x1000/uL (130-400); RED BLOOD CELL COUNT 6.17 mill/uL (4.2-5.4); RED CELL DISTRIBUTION WIDTH 17.8 % (11.6-14.6)
[2022-05-30 23:07] LABS: CHLORIDE 107 mEq/L (98-107)
[2022-05-30 23:10] LABS: PROTHROMBIN TIME 10.7 sec (9.6-11.0)
[2022-05-30 23:15] LABS: ETHANOL BLOOD < 10 mg/dL
[2022-05-30] MEDS ORDERED: PIPERACILLIN/TAZOBACTAM 3.375GM/50ML PREMIX IV ONE (23:15)
[2022-05-30] MEDS ORDERED: PIPERACILLIN/TAZOBACTAM 3.375 G in DEXTROSE 5% WATER 50 ML IV NR (23:30)
[2022-05-31] VITALS (45 sets, daily range): BP systolic 89–191; BP diastolic 31–88
[2022-05-31] MEDS: LABETALOL HCL 100 MG in DEXT 5% WATER 80 ML IV SCH ×3 (01:11→03:19)
[2022-05-31 01:23] LABS: CLARITY URINE CLEAR (CLEAR); COLOR URINE YELLOW (YELLOW); KETONES URINE TRACE (NEGATIVE); LEUKOCYTE ESTERASE URINE NEGATIVE (NEGATIVE); NITRITE URINE NEGATIVE (NEGATIVE); OCCULT BLOOD URINE TRACE (NEGATIVE); PROTEIN URINE 3+ (NEGATIVE); SPECIFIC GRAVITY URINE 1.016 (1.005-1.030); UROBILINOGEN URINE 0.2 E.U./dL (0.2-1.0)
[2022-05-31 01:49] LABS: *AMPHETAMINES SCREEN URINE NEGATIVE (NEGATIVE); *BARBITURATES SCREEN URINE NEGATIVE (NEGATIVE); *BENZODIAZEPINES SCREEN URINE NEGATIVE (NEGATIVE); *COCAINE SCREEN URINE NEGATIVE (NEGATIVE); CANNABINOID URINE SCREEN PRESUMTIVE POSITIVE (NEGATIVE); METHADONE URINE SCREEN NEGATIVE (NEGATIVE); OPIATES URINE SCREEN NEGATIVE (NEGATIVE); PHENCYCLIDINE URINE SCREEN NEGATIVE (NEGATIVE)
[2022-05-31 02:55] LABS: PLATELET ESTIMATE NORMAL
[2022-05-31] MEDS ORDERED: FUROSEMIDE 40MG/4ML VIAL IVP SCH ×2 (03:45→03:55)
[2022-05-31] MEDS ORDERED: DEXTROSE 50% WATER 50ML SYRINGE IV PRN (03:45)
[2022-05-31] MEDS ORDERED: ONDANSETRON HCL 4MG/2ML INJ IV PRN (03:45)
[2022-05-31] MEDS ORDERED: AMLODIPINE 5MG TABLET PO SCH (03:45)
[2022-05-31] MEDS: PANTOPRAZOLE SODIUM 40 MG/VIAL IV SCH (04:04)
[2022-05-31] MEDS: MORPHINE SULFATE 2 MG/ML CPJ (NOT FOR IM USE) IV PRN (04:05)
[2022-05-31] MEDS: HYDRALAZINE HCL 50MG TABLET PO SCH ×4 (04:56→17:00)
[2022-05-31] MEDS: AMLODIPINE 5MG TABLET PO SCH ×2 (04:56→17:00)
[2022-05-31 05:37] LABS: BASOPHILS % 0.2 % (0.0-2.0); EOSINOPHILS % 0.1 % (0.0-5.0); HEMATOCRIT. 42.3 % (36.0-48.0); HEMOGLOBIN. 13.3 g/dL (12.0-16.0); LYMPHOCYTES % 9.1 % (20.0-50.0); MEAN CORPUSCULAR HEMOGLOBIN 21.9 pg (28.0-32.0); MEAN CORPUSCULAR VOLUME 69.4 fL (81.0-99.0); MEAN PLATELET VOLUME 9.5 fl (7.4-10.4); MONOCYTES % 5.5 % (2.0-8.0); NEUTROPHILS % 85.1 % (40.0-76.0); PLATELET 270 x1000/uL (130-400); RED BLOOD CELL COUNT 6.09 mill/uL (4.2-5.4); RED CELL DISTRIBUTION WIDTH 17.8 % (11.6-14.6)
[2022-05-31 05:42] LABS: CHLORIDE 105 mEq/L (98-107)
[2022-05-31] MEDS: BLOOD SUGAR DIAGNOSTIC STRIP TEST SCH ×4 (06:04→20:34)
[2022-05-31] MEDS: CLONIDINE 0.1MG TABLET PO PRN (06:08)
[2022-05-31] MEDS: INSULIN LISPRO 100 UNITS/ML SUBCUT SCH ×4 (06:09→20:34)
[2022-05-31] MEDS ORDERED: NALOXONE HCL 0.4MG/ML VIAL IV PRN (10:15)
[2022-05-31] MEDS: HYDROCODONE/ACETAMINOPHEN 5/325MG TABLET PO PRN ×3 (11:12→20:36)
[2022-05-31] MEDS: LEVOFLOXACIN 500MG PREMIX 100 ML IV SCH (11:46)
[2022-05-31] MEDS: METRONIDAZOLE 500 MG PREMIX 100 ML IV SCH ×2 (11:47→20:35)
[2022-05-31] MEDS ORDERED: IPRATROPIUM/ALBUTEROL 0.5-3(2.5)MG/3ML NEB HHN PRN (12:00)
[2022-06-01] VITALS: BP 126/66
[2022-06-01 04:00] VITALS: BP 138/61
[2022-06-01] MEDS: METRONIDAZOLE 500 MG PREMIX 100 ML IV SCH ×3 (04:46→20:00)
[2022-06-01] MEDS: HYDROCODONE/ACETAMINOPHEN 5/325MG TABLET PO PRN ×2 (05:19→10:42)
[2022-06-01] MEDS: BLOOD SUGAR DIAGNOSTIC STRIP TEST SCH ×5 (06:43→21:12)
[2022-06-01] MEDS: INSULIN LISPRO 100 UNITS/ML SUBCUT SCH ×4 (06:43→21:00)
[2022-06-01 08:00] VITALS: BP 127/69
[2022-06-01] MEDS: PANTOPRAZOLE SODIUM 40 MG/VIAL IV SCH (08:33)
[2022-06-01] MEDS: HYDRALAZINE HCL 50MG TABLET PO SCH ×3 (08:34→17:58)
[2022-06-01] MEDS: AMLODIPINE 5MG TABLET PO SCH ×3 (08:34→21:00)
[2022-06-01] MEDS: LEVOFLOXACIN 500MG PREMIX 100 ML IV SCH (10:39)
[2022-06-01 12:00] VITALS: BP 149/68
[2022-06-01] MEDS ORDERED: IPRATROPIUM BROMIDE (0.02%) 0.5MG/2.5ML NEB HHN PRN (15:00)
[2022-06-01] MEDS ORDERED: ALBUTEROL (0.083%) 2.5MG/3ML NEB HHN PRN (15:00)
[2022-06-01 16:00] VITALS: BP 134/71
[2022-06-01] MEDS: MORPHINE SULFATE 2 MG/ML CPJ (NOT FOR IM USE) IV PRN (16:48)
[2022-06-01 20:00] VITALS: BP 134/62
[2022-06-02] VITALS (7 sets, daily range): BP systolic 143–186; BP diastolic 53–77
[2022-06-02] MEDS: MORPHINE SULFATE 2 MG/ML CPJ (NOT FOR IM USE) IV PRN ×2 (01:11→20:53)
[2022-06-02] MEDS: METRONIDAZOLE 500 MG PREMIX 100 ML IV SCH ×3 (04:56→20:50)
[2022-06-02 06:28] LABS: BASOPHILS % 0.6 % (0.0-2.0); EOSINOPHILS % 0.4 % (0.0-5.0); HEMOGLOBIN. 12.8 g/dL (12.0-16.0); LYMPHOCYTES % 20.1 % (20.0-50.0); MEAN CORPUSCULAR HEMOGLOBIN 21.8 pg (28.0-32.0); MEAN CORPUSCULAR VOLUME 69.4 fL (81.0-99.0); MEAN PLATELET VOLUME 9.8 fl (7.4-10.4); MONOCYTES % 8.1 % (2.0-8.0); NEUTROPHILS % 70.8 % (40.0-76.0); PLATELET 260 x1000/uL (130-400)
[2022-06-02] MEDS: INSULIN LISPRO 100 UNITS/ML SUBCUT SCH ×4 (07:10→21:00)
[2022-06-02 08:28] LABS: CHLORIDE 108 mEq/L (98-107)
[2022-06-02] MEDS: FAMOTIDINE 20MG/2ML VIAL IV SCH ×2 (08:37→20:50)
[2022-06-02] MEDS: HYDRALAZINE HCL 50MG TABLET PO SCH ×3 (08:37→17:27)
[2022-06-02 08:45] LABS: PHOSPHORUS 2.6 mg/dL (2.5-4.9)
[2022-06-02] MEDS: HYDROCODONE/ACETAMINOPHEN 5/325MG TABLET PO PRN ×3 (08:48→18:09)
[2022-06-02] MEDS: BLOOD SUGAR DIAGNOSTIC STRIP TEST SCH ×3 (11:40→21:00)
[2022-06-02] MEDS: LEVOFLOXACIN 500MG PREMIX 100 ML IV SCH (12:13)
[2022-06-02] MEDS: AMLODIPINE 5MG TABLET PO SCH (17:27)
[2022-06-03] VITALS: BP 141/72
[2022-06-03] MEDS: HYDROCODONE/ACETAMINOPHEN 5/325MG TABLET PO PRN ×2 (00:28→08:55)
[2022-06-03 04:00] VITALS: BP 176/81
[2022-06-03] MEDS: CLONIDINE 0.1MG TABLET PO PRN (04:22)
[2022-06-03] MEDS: METRONIDAZOLE 500 MG PREMIX 100 ML IV SCH (04:24)
[2022-06-03] MEDS: MORPHINE SULFATE 2 MG/ML CPJ (NOT FOR IM USE) IV PRN (04:24)
[2022-06-03] MEDS: BLOOD SUGAR DIAGNOSTIC STRIP TEST SCH ×2 (05:49→11:07)
[2022-06-03] MEDS: INSULIN LISPRO 100 UNITS/ML SUBCUT SCH ×2 (06:15→11:25)
[2022-06-03 08:00] VITALS: BP 127/54
[2022-06-03 08:55] VITALS: BP 127/54
[2022-06-03] MEDS: HYDRALAZINE HCL 50MG TABLET PO SCH (08:55)
[2022-06-03] MEDS: AMLODIPINE 5MG TABLET PO SCH (08:55)
[2022-06-03] MEDS: FAMOTIDINE 20MG/2ML VIAL IV SCH (09:01)
[2022-06-03] MEDS: LEVOFLOXACIN 500MG PREMIX 100 ML IV SCH (10:31)
[2022-06-03] MEDS ORDERED: LACTULOSE 20G/30ML UDC PO SCH (12:00)
== END 2022-06-03 12:25 | disposition left against medical advice (07) | DRG 871 ==
LOC: ER 19:51 → MICUSO 23:55 → EDBEDREQTM 05-31 00:05 → EDBEDREQ 05-31 00:05 → EDBEDREQSVC 05-31 00:14 → ENRESERV 05-31 00:36 → 7EST 05-31 16:14
PROVIDERS: ADMIT Internal Medicine Nephrology; ATTEND Internal Medicine Nephrology
DX: A41.9 Sepsis, unspecified organism (principal); J69.0 Pneumonitis due to inhalation of food and vomit; I16.1 Hypertensive emergency; G89.4 Chronic pain syndrome; I10 Essential (primary) hypertension; J44.9 Chronic obstructive pulmonary disease, unspecified; I25.10 Atherosclerotic heart disease of native coronary artery without angina pectoris; M32.9 Systemic lupus erythematosus, unspecified; K52.9 Noninfective gastroenteritis and colitis, unspecified; F12.90 Cannabis use, unspecified, uncomplicated; E66.9 Obesity, unspecified; E11.65 Type 2 diabetes mellitus with hyperglycemia; D64.9 Anemia, unspecified; Z53.29 Procedure and treatment not carried out because of patient's decision for other reasons; Z86.73 Personal history of transient ischemic attack (TIA), and cerebral infarction without residual deficits; Z90.710 Acquired absence of both cervix and uterus; I25.2 Old myocardial infarction; Z98.1 Arthrodesis status; Z68.36 Body mass index [BMI] 36.0-36.9, adult
CPT/HCPCS: 36415; 71045; 72128; 72131; 74176; 80048; 80053; 80305; 80320; 81003; 82962; 83036; 83735; 84100; 84484; 85025; 93005; 99285; C1893; C9113; J0360; J1200; J1815; J1940; J1956; J2270; J2405; J2543; J3490; J7030; J7060; A4315; G0480